=== PATIENT | female | born 1935 | race Caucasian/White ===

== ENCOUNTER → 2016-07-10 | Outpatient (CLI) | payer MEDICARE, OTHER | LOC: CT 09:28 | DX: C23 Malignant neoplasm of gallbladder (principal); K43.9 Ventral hernia without obstruction or gangrene | CPT/HCPCS: 36415; 82565; 84520; J7050; Q9965 ==

== ENCOUNTER → 2017-01-17 | Outpatient (CLI) | payer MEDICARE, OTHER | LOC: CT 08:00 | DX: C23 Malignant neoplasm of gallbladder (principal); R91.8 Other nonspecific abnormal finding of lung field | CPT/HCPCS: 71260; J7050; Q9962 ==